=== PATIENT | female | born 1960 | race Hispanic/Latino ===

== ENCOUNTER → 2019-01-14 | Outpatient (CLI) | payer OTHER | END | disposition home or self-care (01) | LOC: OIH 13:50 | PROVIDERS: ATTEND Internal Medicine | DX: M47.816 Spondylosis without myelopathy or radiculopathy, lumbar region (principal); M25.511 Pain in right shoulder; M79.606 Pain in leg, unspecified | CPT/HCPCS: 72100; 73030 ==